=== PATIENT | male | born 1955 | race African-American/Black ===

== ENCOUNTER 2020-01-13 09:10 | Day surgery (SDC) | payer MEDICAID ==
[~2020-01-13] VITALS: Ht 175.3 cm; Wt 72.6 kg
[2020-01-13 09:54] LABS: ANION GAP 14.7 mmol/L (8-16); BASOPHILS 0.2 % (0-2); CALCIUM 9.4 mg/dL (8.5-10.1); CARBON DIOXIDE 21.2 mmol/L (21.0-32.0); CREATININE - SERUM 6.1 mg/dL (0.6-1.3); EOSINOPHILS 2.9 % (0-7); HEMOGLOBIN 10.8 g/dL (13.5-17.5); IMMATURE GRANULOCYTES 0.3 % (0-5); MCH 30.5 pg (26.0-34.0); MCHC 32.7 g/dL (31.0-37.0); MCV 93.2 fL (80.0-100.0); MEAN PLATELET VOLUME 9.6 fL (7.4-10.4); MONOCYTES 8.2 % (2-11); NEUTROPHILS 56.4 % (40-80); PLATELET COUNT 160 10x3/uL (130-400); POTASSIUM - SERUM 4.9 mmol/L (3.5-5.1); RBC 3.54 10x6/uL (4.20-6.10); RDW 16.2 % (11.5-14.5); WBC 6.1 10x3/uL (4.8-10.8)
[2020-01-13 09:55] LABS: INR 0.92 (0.85-1.17); PROTIME 12.3 SECONDS (11.6-15.0)
[2020-01-13] MEDS ORDERED: NORVASC10 MG PO (10:54)
[2020-01-13] MEDS ORDERED: AUGMENTIN 875-11 TAB PO (10:55)
[2020-01-13] MEDS ORDERED: COMBIVENT RESPIM4 GM INH (10:55)
[2020-01-13] MEDS ORDERED: SYMBICORT 16010.2 GM INH (10:55)
[2020-01-13] MEDS ORDERED: ELIQUIS5 MG PO (10:55)
[2020-01-13] MEDS ORDERED: COZAAR100 MG PO (10:56)
[2020-01-13] MEDS ORDERED: TENORMIN50 MG PO (10:56)
[2020-01-13] MEDS ORDERED: FUROSEMIDE40 MG PO (10:56)
[2020-01-13] MEDS ORDERED: ZYLOPRIM100 MG PO (10:56)
[2020-01-13] MEDS ORDERED: AVODART0.5 MG PO (10:56)
[2020-01-13 11:01] VITALS: BP 128/79; Ht 175.3 cm; Wt 72.6 kg
[2020-01-13] MEDS ORDERED: HYDROCODON-ACE1 EAC7 PO (13:46)
--- NOTE | 2020-01-13 16:30 | NUR ---
1515 IV D/C'D WITH CANNULA INTACT, PRESSURE HELD AND DRSG PLACED. LEFT ARM WITH +THRILL AND EFFECTIVE NERVE BLOCK. DISCHARGE INSTRUCTIONS GIVEN AND PT VERBALIZED AN UNDERSTANDING.
--- NOTE | 2020-01-15 13:53 | OP ---
PATIENT NAME: NICO GE MEDICAL RECORD: [id number] :53 LOCATION:[facility] ADMISSION DATE: SURGEON: CHELSY REYNA MD DATE OF OPERATION: 01/13/2020 REFERRED BY: Dr. Madera of [place]. PREOPERATIVE DIAGNOSES: End-stage renal disease, dependence on hemodialysis and thrombophilia with multiple failed previous arteriovenous fistulas. POSTOPERATIVE DIAGNOSES: End-stage renal disease, dependence on hemodialysis and thrombophilia with multiple failed previous arteriovenous fistulas. OPERATION PERFORMED: Implantation of an Artegraft loop arteriovenous graft in the left arm between the proximal brachial artery and the proximal basilic vein. SURGEON: Chelsy Reyna MD ANESTHESIA: Regional nerve block plus general anesthesia per Dr. Quezada and NICKY. PREOPERATIVE NOTE: Mr. Ge is a 64-year-old -[place] male from [place], [place]. He has end-stage renal disease and is a dialysis patient, dialyzing now with a tunneled dialysis catheter. He has had multiple prior fistula operated in both arms and they have all failed very early. He has had 2 peritoneal dialysis catheters removed for infection. After the last PD catheter was removed, he was able to stop dialysis for a period of time, but now his renal function has deteriorated again and he has had to go back on dialysis. I saw him in my office recently and we made plans to implant an AV graft in his right arm. The patient though today has indicated a strong preference to have it placed in his left arm because he is right handed and I do not know that the right arm offers that much advantage, so we will go with the left. Under initially a regional block anesthesia, which was excellent except it did not provide anesthesia the highest portion of the arm and into the axilla and despite the use of additional local anesthesia was necessary to go ahead and induce general anesthesia using an LMA per Dr. Quezada. I examined the arm with ultrasound and noted he really had no adequate cephalic or basilic veins in the distal arm above the elbow for creation of primary fistula. The basilic vein though proximally was much larger of course as it was getting close to the axillary vein. The brachial artery was thickened, but widely patent with good flow. I opted to go ahead with a brachiobasilic Artegraft. I made an incision on the medial aspect of the upper arm and exposed the proximal basilic vein and controlled with Silastic loops. The proximal brachial artery was controlled similarly. The artery was occluded and opened for a short distance and then flushed with heparinized saline. I chose a 6-mm diameter Artegraft bevelled one end and anastomosed it end-to-side to the artery with running 6-0 Prolene. When the clamps and loops were released, the suture line was not totally hemostatic, but then after a period of gentle pressure with fibrillar and dry gauze, it became so. The graft and artery were flushed with heparinized saline and clamped. The graft was then placed in a very superficial tunnel, which curved out laterally and passed downward into the lateral arm and then came back around it back up on the inside of the arm back to the primary incision. Care was taken not to twist or leave any kinks in the graft, one small counterincision was necessary. The graft was then shortened and bevelled. The vein was occluded, opened and the graft and anastomosed end-to-side, end of graft to side OPERATIVE REPORT [id number] NICO GE of vein done with running 6-0 Prolene. When completed, the occluding clamps and loops were released, excellent flow developed immediately within the AV graft. There is Doppler pulsatile flow in the radial and ulnar arteries at the wrist and of the brachial artery in the antecubital space. There is very definite reduction in amplitude when the graft is open and improved amplitude with the graft occluded. It is certainly possible the patient could have ischemic steal symptoms, which would have to be dealt with as needed. The patient's wound was irrigated with Ancef and gentamicin solution. Two wounds were closed with interrupted inverted 3-0 Vicryl and running intracuticular 4-0 Stratafix. The incisions were sealed with Dermabond glue and covered with Maxorb Ag, Tegaderm, and Cavilon skin prep. He was awakened at that point and taken to the recovery room in very stable condition. PLAN: For the patient to be discharged to home today and return to see me in my office in about 7-10 days. He is given a prescription for 20 tablets of Maryneal 5/325. He can take 1 or 2 p.o. q.4 hours p.r.n. for pain. He will need to keep his arm in a sling initially, but when the nerve block wears off and motor function returns he should not use the sling anymore after that and should begin to use the arm normally. I have asked the patient to wait to resume his usual daily dose of Eliquis until this coming Thursday. The patient does have a thrombophilia, which has been very severe and terrible for him up until this point and I believe that he will certainly need to continue on anticoagulation, so long as he needs to have a long-term dialysis access. Blood loss during the operation was about 5 cc, was unreplaced. Sponges, instruments, and needles were accounted for. No drain was used and no surgical specimen submitted for histopathology. TRANSINT:[id number] Voice Confirmation ID: [id number] DOCUMENT ID: [id number] cc: [facility] [place] CHELSY REYNA MD at 1353 CC: ARNOL MADERA MD [id number] DICTATION DATE: 01/13/20 1403 FACILITIES MAINTENANCE ENGINEER: 01/13/20 2326 [facility] 01/13/20 [id number] [place] [address]
== END 2020-01-13 15:15 | disposition home or self-care (01) ==
LOC: D.OPS 09:10
PROVIDERS: Surgery; ATTEND Internal Medicine Nephrology
DX: N18.6 End stage renal disease (principal); Z99.2 Dependence on renal dialysis; I10 Essential (primary) hypertension; J44.9 Chronic obstructive pulmonary disease, unspecified; J45.909 Unspecified asthma, uncomplicated; D64.9 Anemia, unspecified; D68.59 Other primary thrombophilia